=== PATIENT | female | born 2000 | race Caucasian/White ===

== ENCOUNTER 2022-10-08 12:29 | Outpatient (REF) | payer OTHER, SELFPAY ==
[2022-10-08 14:03] LABS: MANUAL DIFF FLAG NO
[2022-10-08 14:18] LABS: Appearance Urine Cloudy; Color Urine Yellow; Glucose Urine UA Negative (Negative); Leukocyte Esterase Urine Moderate (2+) (Negative); Nitrite Urine Negative (Negative); PH 6.5 (5.0-9.0); UMIC TRIGGER UA YES; Urine Blood Negative (Negative); Urine Ketones Negative (Negative); Urine Protein Negative (Neg-Trace)
[2022-10-08 14:19] LABS: Basophils Percent Auto 0.4 % (0-2); Eosinophils Absolute Auto 0.1 X10*3/uL (0.0-0.4); Eosinophils Percent Auto 1.2 % (0-4); Hematocrit 41.5 % (37.0-47.0); Hemoglobin 13.7 g/dl (12.0-16.0); Imm Gran Abs Auto 0.03 X10*3/uL (0.00-0.03); Imm Gran Pct Auto 0.4 % (0.0-0.4); Lymphocytes Absolute Auto 1.8 X10*3/uL (1.2-4.9); Lymphocytes Percent Auto 22.5 % (20-40); Mean Corpuscular Hemoglobin 31.6 pg (27.0-33.0); Mean Corpuscular Volume 95.8 fL (80.0-98.0); Mean Platelet Volume 9.8 fL (9.4-12.3); Monocytes Absolute Auto 0.6 X10*3/uL (0.1-1.2); Monocytes Percent Auto 7.2 % (2-11); Neutrophils Absolute Auto 5.3 x10*3/uL (2.0-8.3); Neutrophils Percent Auto 68.3 % (45-73); Platelet Count 298 X10*3/uL (160-400); Red Blood Count 4.33 X10*6/uL (4.20-5.50); Red Cell Distribution Width 13.5 % (11.0-16.0); White Blood Count 7.8 X10*3/uL (4.8-10.8)
[2022-10-08 14:28] LABS: Bacteria Urine 1+ (None Seen); Hyaline Casts Urine 0-2 /LPF (0-2); RBC Urine 0-2 /HPF (0-2); Squamous Epithelial Cell Urine >20 /HPF (0-2); WBC Urine 0-5 /HPF (0-5)
[2022-10-08 15:11] LABS: Alanine Aminotransferase 29 U/L (0-31); Albumin Level 4.2 g/dL (3.5-5.0); Alkaline Phosphatase 75 U/L (39-117); Anion Gap 11 (12-20); Aspartate Amino Transferase 20 U/L (5-31); Bilirubin Total 0.6 mg/dL (0.0-1.0); Blood Urea Nitrogen 13 mg/dL (9-16); Calcium 9.1 mg/dL (8.4-10.2); Carbon Dioxide 23 mmol/L (22-29); Chloride 109 mmol/L (96-108); Cholesterol 263 mg/dL; Estimated Glomerular Filt Rate > 60; Glucose Fasting 88 mg/dL (60-99); HDL Cholesterol 51 mg/dL; LDL Cholesterol Calculated 198 mg/dl; Potassium 4.3 mmol/L (3.3-5.1); Sodium 139 mmol/L (135-145); TSH reflex Free T4 1.08 uIU/mL (0.32-4.0); Total Protein 7.1 g/dL (6.5-8.0); Triglycerides 71 mg/dL
[2022-10-09 04:41] LABS: HBS Num1 2.96 mIU/mL (0-7.99); HBsAGNum1 0.25 S/CO (0.00-0.99); HIV AB/AG Nonreactive (Nonreactive); HIV Num 1 0.07 S/CO (0.00-0.99); Hepatitis B Core Antibody Nonreactive (Nonreactive); Hepatitis B Surface Antigen Negative (Negative); ~HepC Num1 0.11 S/CO (0.00-0.79); ~Hepatitis B Surface Antibody NONREACTIVE (Nonreactive); ~Hepatitis C Antibody Nonreactive (Nonreactive)
[2022-10-09 05:49] LABS: Syphilis Screen Nonreactive (Nonreactive)
== END 2022-10-08 12:30 | disposition home or self-care (01) ==
LOC: HO.WFDLDS 12:29
PROVIDERS: Visit Provider Family Medicine
DX: Z00.00 Encounter for general adult medical examination without abnormal findings (principal); Z11.3 Encounter for screening for infections with a predominantly sexual mode of transmission; Z11.4 Encounter for screening for human immunodeficiency virus [HIV]
CPT/HCPCS: 36415; 80053; 80061; 81001; 84443; 85025; 86704; 86706; 86780; 86803; 87340; 87389

== ENCOUNTER 2023-01-02 09:34 | Outpatient (REF) | payer OTHER, SELFPAY ==
[2023-01-02 13:52] LABS: CT PCR NOT DETECTED (Not Detect.); NG PCR NOT DETECTED (Not Detect.)
[2023-01-03 10:02] LABS: BV Int Neg Control Negative (Negative); BV Int Pos Control Positive (Positive)
== END 2023-01-02 09:35 | disposition home or self-care (01) ==
LOC: HO.LNP 09:34
PROVIDERS: PCP Family Medicine; Visit Provider Advanced Practice Midwife
DX: Z01.419 Encounter for gynecological examination (general) (routine) without abnormal findings (principal)
CPT/HCPCS: 0353U; 87480; 87510; 87660; 88142

== ENCOUNTER 2023-01-10 13:58 | Outpatient (REF) | payer OTHER, SELFPAY ==
--- NOTE | ~2023-01-10 | US_ITS ---
EXAMINATION: US DIAGNOSTIC ULTRASOUND BREAST, BILATERAL CLINICAL INFORMATION: Right breast mass 11 o'clock and left breast mass 1 o'clock. COMPARISON: None. TECHNIQUE: Ultrasound of the bilateral breasts performed with real-time hernandez scale imaging and color Doppler. FINDINGS: RIGHT BREAST: Targeted ultrasound evaluation demonstrated 2 hypoechoic lesions. At the 9 o'clock position there is a 1.2 x 0.9 x 2.0 cm smoothly circumscribed heterogeneous and hypoechoic mass approximately 5 cm from the nipple. No significant distal sound shadowing or enhancement is appreciated. No internal vascularity is identified. At the 11 o'clock position, approximately 10 cm from the nipple, there is a slightly lobulated heterogeneous and hypoechoic mass without significant distal sound shadowing or enhancement. This measures approximately 4.0 x 2.2 x 3.0 cm in size. There is some internal vascularity present. Lesion is wider than it is tall. LEFT BREAST: At the 3 o'clock position, approximately 8 cm from the nipple, there is a circumscribed hypoechoic mass with some internal vascularity measuring approximately 4.0 x 2.4 x 4.0 cm in size. Lesion is wider than it is tall. No significant distal sound shadowing or enhancement is appreciated. Results are discussed with the patient at time of visit. Breast center patient navigator called the above report to referring provider's office (Shaylee). US/US breast LT limited IMPRESSION: Bilateral breast lesions which are solid and probably represent fibroadenomas. Recommend ultrasound-guided core biopsy of the 2 largest lesions, one in the right breast and one in the left breast, with these masses measuring 4 cm in diameter. ASSESSMENT: BI-RADS 4: Suspicious. (subcategory 4A: Low suspicion for malignancy). RECOMMENDATION: Ultrasound guided core biopsy bilateral breasts.
--- NOTE | ~2023-01-10 | US_ITS ---
EXAMINATION: US DIAGNOSTIC ULTRASOUND BREAST, BILATERAL CLINICAL INFORMATION: Right breast mass 11 o'clock and left breast mass 1 o'clock. COMPARISON: None. TECHNIQUE: Ultrasound of the bilateral breasts performed with real-time hernandez scale imaging and color Doppler. FINDINGS: RIGHT BREAST: Targeted ultrasound evaluation demonstrated 2 hypoechoic lesions. At the 9 o'clock position there is a 1.2 x 0.9 x 2.0 cm smoothly circumscribed heterogeneous and hypoechoic mass approximately 5 cm from the nipple. No significant distal sound shadowing or enhancement is appreciated. No internal vascularity is identified. At the 11 o'clock position, approximately 10 cm from the nipple, there is a slightly lobulated heterogeneous and hypoechoic mass without significant distal sound shadowing or enhancement. This measures approximately 4.0 x 2.2 x 3.0 cm in size. There is some internal vascularity present. Lesion is wider than it is tall. LEFT BREAST: At the 3 o'clock position, approximately 8 cm from the nipple, there is a circumscribed hypoechoic mass with some internal vascularity measuring approximately 4.0 x 2.4 x 4.0 cm in size. Lesion is wider than it is tall. No significant distal sound shadowing or enhancement is appreciated. Results are discussed with the patient at time of visit. Breast center patient navigator called the above report to referring provider's office (Shaylee). US/US breast RT limited IMPRESSION: Bilateral breast lesions which are solid and probably represent fibroadenomas. Recommend ultrasound-guided core biopsy of the 2 largest lesions, one in the right breast and one in the left breast, with these masses measuring 4 cm in diameter. ASSESSMENT: BI-RADS 4: Suspicious. (subcategory 4A: Low suspicion for malignancy). RECOMMENDATION: Ultrasound guided core biopsy bilateral breasts.
== END 2023-01-10 13:59 | disposition home or self-care (01) ==
LOC: HO.MAMMO 13:58
PROVIDERS: PCP Family Medicine; Visit Provider Family Medicine
DX: N63.11 Unspecified lump in the right breast, upper outer quadrant (principal); N63.21 Unspecified lump in the left breast, upper outer quadrant
CPT/HCPCS: 76642

== ENCOUNTER 2023-01-16 08:51 | Outpatient (REF) | payer OTHER, SELFPAY ==
--- NOTE | ~2023-01-16 | US_ITS ---
EXAMINATION: ULTRASOUND GUIDED CORE BIOPSY BREAST, LEFT ULTRASOUND GUIDED CORE BIOPSY BREAST, RIGHT CLINICAL INFORMATION: 22-year-old with bilateral palpable masses, each approximately 4 cm on ultrasound, likely fibroadenoma. COMPARISON: Targeted bilateral breast ultrasound 01/10/2023. FINDINGS: Proper informed consent is obtained from the patient after discussion of the procedure, potential risks and complications, and alternatives. Patient was given an opportunity for questions. The patient appeared to understand. The patient consented to the procedure and signed the consent form. LEFT BREAST: LOCATION: 3:00, 8 cm from nipple. GUIDANCE: Ultrasound-guided; aseptic technique. LESION: Macrolobulated smooth solid mass, 4 cm, likely fibroadenoma. APPROACH: Oblique caudal cranial. ANESTHESIA: 10 mL carbonated 1% lidocaine. DERMATOTOMY: Single skin ivan dermatotomy performed. NEEDLE: 14-gauge Achieve core biopsy device with 13.5-gauge co-axial guide needle. CORES: 5. CLIP: HydroMARK; shape: butterfly. Clip deployment is visualized during real-time ultrasound. RIGHT BREAST: New anesthesia and biopsy supplies are used. LOCATION: 11:00, 10 cm from nipple. GUIDANCE: Ultrasound-guided; aseptic technique. LESION: Macrolobulated solid mass, 4 cm, likely fibroadenoma. APPROACH: Lateral medial. ANESTHESIA: 10 mL carbonated 1% lidocaine. DERMATOTOMY: Single skin ivan dermatotomy performed. NEEDLE: 14-gauge Achieve core biopsy device with 13.5-gauge co-axial guide needle. CORES: 5. CLIP: HydroMARK; shape: open coil. Clip deployment is visualized during real-time ultrasound. The patient tolerated the procedure well. No immediate complications. Home instructions reviewed with the patient. Final pathology results are pending. US/US breast ndl core biopsy LT IMPRESSION: 1. Status post ultrasound-guided core biopsy bilateral breast. 2. Clips placed: Left: HydroMARK; shape: butterfly and right: HydroMARK; shape: open coil. 3. Pathology pending. An addendum report will be issued.
--- NOTE | ~2023-01-16 | US_ITS ---
EXAMINATION: ULTRASOUND GUIDED CORE BIOPSY BREAST, LEFT ULTRASOUND GUIDED CORE BIOPSY BREAST, RIGHT CLINICAL INFORMATION: 22-year-old with bilateral palpable masses, each approximately 4 cm on ultrasound, likely fibroadenoma. COMPARISON: Targeted bilateral breast ultrasound 01/10/2023. FINDINGS: Proper informed consent is obtained from the patient after discussion of the procedure, potential risks and complications, and alternatives. Patient was given an opportunity for questions. The patient appeared to understand. The patient consented to the procedure and signed the consent form. LEFT BREAST: LOCATION: 3:00, 8 cm from nipple. GUIDANCE: Ultrasound-guided; aseptic technique. LESION: Macrolobulated smooth solid mass, 4 cm, likely fibroadenoma. APPROACH: Oblique caudal cranial. ANESTHESIA: 10 mL carbonated 1% lidocaine. DERMATOTOMY: Single skin ivan dermatotomy performed. NEEDLE: 14-gauge Achieve core biopsy device with 13.5-gauge co-axial guide needle. CORES: 5. CLIP: HydroMARK; shape: butterfly. Clip deployment is visualized during real-time ultrasound. RIGHT BREAST: New anesthesia and biopsy supplies are used. LOCATION: 11:00, 10 cm from nipple. GUIDANCE: Ultrasound-guided; aseptic technique. LESION: Macrolobulated solid mass, 4 cm, likely fibroadenoma. APPROACH: Lateral medial. ANESTHESIA: 10 mL carbonated 1% lidocaine. DERMATOTOMY: Single skin ivan dermatotomy performed. NEEDLE: 14-gauge Achieve core biopsy device with 13.5-gauge co-axial guide needle. CORES: 5. CLIP: HydroMARK; shape: open coil. Clip deployment is visualized during real-time ultrasound. The patient tolerated the procedure well. No immediate complications. Home instructions reviewed with the patient. Final pathology results are pending. US/US breast ndl core biopsy RT IMPRESSION: 1. Status post ultrasound-guided core biopsy bilateral breast. 2. Clips placed: Left: HydroMARK; shape: butterfly and right: HydroMARK; shape: open coil. 3. Pathology pending. An addendum report will be issued.
[2023-01-16] MEDS: Lidocaine HCl 1 % 20 ML VIAL 18 ML SUBCUT (10:37)
[2023-01-16] MEDS: Sodium Bicarbonate 8.4% 50 MEQ/50 ML VIAL SUBCUT (10:38)
== END 2023-01-16 08:52 | disposition home or self-care (01) ==
LOC: HO.MAMMO 08:51
PROVIDERS: PCP Family Medicine; Visit Provider Surgery
DX: N63.25 Unspecified lump in the left breast, overlapping quadrants (principal); N63.11 Unspecified lump in the right breast, upper outer quadrant
CPT/HCPCS: 19083; 88305; 99202; A4648

== ENCOUNTER 2023-02-11 15:03 | Outpatient (REF) | payer OTHER, SELFPAY ==
[2023-02-12 12:08] LABS: Appearance Urine Turbid; Color Urine Yellow; Glucose Urine UA Negative (Negative); Leukocyte Esterase Urine Small (1+) (Negative); Nitrite Urine Negative (Negative); PH 5.5 (5.0-9.0); Specific Gravity - Urine 1.025 (1.005-1.025); UMIC TRIGGER UA YES; Urine Blood Negative (Negative); Urine Ketones Negative (Negative); Urine Protein Negative (Neg-Trace)
[2023-02-12 12:27] LABS: RBC Urine 0-2 /HPF (0-2); WBC Urine 0-5 /HPF (0-5)
[2023-02-12 12:28] LABS: Bacteria Urine 1+ (None Seen); Hyaline Casts Urine 0-2 /LPF (0-2)
[2023-02-12 17:58] LABS: CT PCR NOT DETECTED (Not Detect.); NG PCR NOT DETECTED (Not Detect.)
== END 2023-02-11 15:04 | disposition home or self-care (01) ==
LOC: HO.LAB 15:03
PROVIDERS: Visit Provider Family Medicine
DX: Z00.00 Encounter for general adult medical examination without abnormal findings (principal); R35.0 Frequency of micturition; E78.00 Pure hypercholesterolemia, unspecified; Z20.2 Contact with and (suspected) exposure to infections with a predominantly sexual mode of transmission
CPT/HCPCS: 0353U; 81001; 81003; 87086

== ENCOUNTER 2023-05-27 12:05 | Outpatient (REF) | payer OTHER, SELFPAY ==
[2023-05-27 14:48] LABS: Appearance Urine Clear; Color Urine Yellow; Glucose Urine UA Negative (Negative); Leukocyte Esterase Urine Trace (Negative); Nitrite Urine Negative (Negative); PH 5.5 (5.0-9.0); UMIC TRIGGER UA YES; Urine Blood Negative (Negative); Urine Ketones Negative (Negative); Urine Protein Negative (Neg-Trace)
[2023-05-27 14:51] LABS: Bacteria Urine 1+ (None Seen); Hyaline Casts Urine 0-2 /LPF (0-2); RBC Urine 0-2 /HPF (0-2); WBC Urine 0-5 /HPF (0-5)
[2023-05-27 17:42] LABS: Cholesterol 244 mg/dL; HDL Cholesterol 59 mg/dL; LDL Cholesterol Calculated 167 mg/dl; Triglycerides 91 mg/dL
[2023-05-28 11:24] LABS: CT PCR NOT DETECTED (Not Detect.); NG PCR NOT DETECTED (Not Detect.)
== END 2023-05-27 12:06 | disposition home or self-care (01) ==
LOC: HO.WFDLDS 12:05
PROVIDERS: Visit Provider Family Medicine
DX: Z00.00 Encounter for general adult medical examination without abnormal findings (principal); Z11.3 Encounter for screening for infections with a predominantly sexual mode of transmission; E78.00 Pure hypercholesterolemia, unspecified
CPT/HCPCS: 0353U; 36415; 80061; 81001

== ENCOUNTER 2023-05-30 15:59 | Outpatient (AMB) | payer OTHER, SELFPAY ==
--- NOTE | 2023-05-30 15:53 | MHC.PC.OV ---
Intake Visit Reasons: Follow-up elevated cholesterol and urine studies Radiation Protection Technician Required: No Allergies No Known Allergies Allergy (Verified 05/30/23 15:54) Tobacco use date assessed: 05/30/23 Dental Screening Dental Screen Date: 05/30/23 Did you have a dental visit in the last 12 months?: Yes Did you have a dental problem in the last 6 months where you did not have access to dental care?: No Was dental information given to patient?: Patient has dentist HPI Follow-up elevated cholesterol and urine studies HPI Details 22 y/o female presents to f/u elevated cholesterol and urine studies via telemedicine. Lipid panel drawn 05/27/23. Reviewed labs with pt. Triglycerides 91. TC 244. LDL improved from 198 to 167. HDL 59. 1+ urine bacteruia seen. She denies any urinary symptoms. She states she would like to improve her diet further. She does note her weight has been improving. HPI Comments History of Present Illness Details Documentation assistance for Haroldo Chavez MD, was provided by Hudson Roldan,? [employer] on 05/30/2023 4:06 PM EST. I, Dr. Chavez, have read, observed, and verified documentation. 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 Current occupational exposures/hazards: No Cognitive needs: No Hearing needs: No Vision needs: No Female Reproductive History Menstrual Age of Menarche: 10 Review of Systems Const Denies chills, Denies fatigue, Denies fever(s), Denies headache(s) and Denies weakness ENT Denies dizziness and Denies headache(s) Card Denies dyspnea Resp Denies cough, Denies dyspnea, Denies wheezing and Denies other (shortness of breath) Musc Denies numbness and Denies tingling Neuro Denies dizziness, Denies headache(s), Denies numbness, Denies tingling and Denies weakness Psych Denies anxiety and Denies depression Endo Denies fatigue Aller/Immun Denies wheezing Physical exam (Primary Care) Tobacco/Smoking Status: Tobacco use Status Tobacco use date assessed 05/30/23 05/30/23 15:59 Patient Tobacco Use Status Never used Tobacco 05/30/23 15:59 Tobacco use type 02/11/23 15:03 e-Cigarette/Vaping Use Never Used 05/30/23 15:59 Telehealth Telehealth Location of provider rendering services: practice address Location of patient: other Patient Identification confirmed using: Name, : Yes Telehealth method: voice only Patient verbally consented to treatment: Yes Patient verbally consented to billing insurance company: Yes Patient informed of any privacy concerns related to visit: Yes Minutes spent on Phone/Video with Pt.: 7 Assessment and Plan Assessment & Plan (1) Elevated LDL cholesterol level: Code(s): E78.00 - Pure hypercholesterolemia, unspecified Plan: Patient brought her LDL cholesterol down from 198 to 167; 31 points. She would like to continue working on lifestyle changes Will follow-up in 3-4 months and she will have her labs drawn prior to that visit (2) Bacteria in urine: Code(s): R82.71 - Bacteriuria Plan: No significant symptoms Likely mild bacteriuria Hydrate well (3) Screening for STD (sexually transmitted disease): Code(s): Z11.3 - Encounter for screening for infections with a predominantly sexual mode of transmission Plan: STD screening negative now Orders: Orders Basic Metabolic Panel Fasting Today E78.00 - Pure hypercholesterolemia, unspecified Lipid Panel Today E78.00 - Pure hypercholesterolemia, unspecified, Z00.00 - Encounter for general adult medical examination without abnormal findings Coding Level of Care Code Tele Est Pt Level 2 (22426) Diagnoses Elevated LDL cholesterol level E78.00 Bacteria in urine R82.71 Screening for STD (sexually transmitted disease) Z11.3
== END 2023-05-30 16:10 ==
LOC: HO.HMGFM 16:00
PROVIDERS: PCP Family Medicine; Visit Provider Family Medicine
DX: E78.00 Pure hypercholesterolemia, unspecified (principal); R82.71 Bacteriuria; Z11.3 Encounter for screening for infections with a predominantly sexual mode of transmission
CPT/HCPCS: 99212

== ENCOUNTER 2023-10-20 12:28 | Outpatient (REF) | payer OTHER, SELFPAY ==
[2023-10-20 14:04] LABS: Anion Gap 11 (12-20); Blood Urea Nitrogen 13 mg/dL (9-16); Calcium 9.3 mg/dL (8.4-10.2); Carbon Dioxide 22 mmol/L (22-29); Chloride 110 mmol/L (96-108); Cholesterol 238 mg/dL (<200); Estimated Glomerular Filt Rate > 60; Glucose Fasting 93 mg/dL (60-99); HDL Cholesterol 48 mg/dL (>40); LDL Cholesterol Calculated 172 mg/dL (<100); Potassium 4.1 mmol/L (3.3-5.1); Sodium 139 mmol/L (135-145); Triglycerides 91 mg/dL (<150)
[2023-10-20 14:28] LABS: Appearance Urine Clear; Color Urine Yellow; Glucose Urine UA Negative (Negative); Leukocyte Esterase Urine Negative (Negative); Nitrite Urine Negative (Negative); PH 5.5 (5.0-9.0); Specific Gravity - Urine 1.025 (1.005-1.025); Urine Blood Negative (Negative); Urine Ketones Negative (Negative); Urine Protein Negative (Neg-Trace)
== END 2023-10-20 12:29 | disposition home or self-care (01) ==
LOC: HO.LAB 12:28
PROVIDERS: PCP Family Medicine; Visit Provider Family Medicine
DX: Z00.00 Encounter for general adult medical examination without abnormal findings (principal); R35.0 Frequency of micturition; E78.00 Pure hypercholesterolemia, unspecified
CPT/HCPCS: 36415; 80048; 80061; 81003

== ENCOUNTER 2023-11-11 12:13 | Outpatient (REF) | payer OTHER, SELFPAY ==
[2023-11-11 16:35] LABS: CT PCR NOT DETECTED (Not Detect.); NG PCR DETECTED (Not Detect.)
[2023-11-12 03:46] LABS: Syphilis Screen Nonreactive (Nonreactive)
[2023-11-12 04:14] LABS: HBS Num1 0.67 mIU/mL (0-7.99); HBc Num1 0.11 S/CO (0.00-0.79); HBsAGNum1 0.42 S/CO (0.00-0.99); HIV AB/AG Nonreactive (Nonreactive); HIV Num 1 0.06 S/CO (0.00-0.99); Hepatitis B Core Antibody Nonreactive (Nonreactive); Hepatitis B Surface Antigen Negative (Negative); ~HepC Num1 0.11 S/CO (0.00-0.79); ~Hepatitis B Surface Antibody NONREACTIVE (Nonreactive); ~Hepatitis C Antibody Nonreactive (Nonreactive)
[2023-11-13 05:09] LABS: Herpes Simplex Type 2 IgG <0.90 index
== END 2023-11-11 12:14 | disposition home or self-care (01) ==
LOC: HO.WFDLDS 12:13
PROVIDERS: Visit Provider Family Medicine
DX: Z11.3 Encounter for screening for infections with a predominantly sexual mode of transmission (principal); Z11.4 Encounter for screening for human immunodeficiency virus [HIV]
CPT/HCPCS: 0353U; 36415; 86695; 86696; 86704; 86706; 86780; 86803; 87340; 87389

== ENCOUNTER 2023-11-20 11:16 | Outpatient (AMB) | payer OTHER, SELFPAY ==
--- NOTE | 2023-11-20 11:29 | MHC.PC.OV ---
Vital Signs 11/20/23 11:30 Height 5 ft 9.5 in Weight 209 lb BMI 30.4 BP 126/70 Blood Pressure Location Lt brachial Position Sitting Pulse 89 Pulse Source Pulse Oximeter Pulse Oximetry (%) 100 Oxygen Delivery Method Room Air Intake Visit Reasons: Discuss results Intake Note: Patient is here to discuss her test results, already got her rocephin shot at an urgent. Allergies No Known Allergies Allergy (Verified 11/20/23 11:33) Tobacco use date assessed: 11/20/23 HPI Discuss results HPI Details 23 y/o female presents to discuss test results. 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 Current occupational exposures/hazards: No Cognitive needs: No Hearing needs: No Vision needs: No Female Reproductive History Menstrual Age of Menarche: 10 Review of Systems Const Denies chills, Denies fatigue, Denies fever(s), Denies headache(s) and Denies weakness ENT Denies dizziness and Denies headache(s) Card Denies dyspnea Resp Denies cough, Denies dyspnea, Denies wheezing and Denies other (shortness of breath) Musc Denies numbness and Denies tingling Neuro Denies dizziness, Denies headache(s), Denies numbness, Denies tingling and Denies weakness Psych Denies anxiety and Denies depression Endo Denies fatigue Aller/Immun Denies wheezing Physical exam (Primary Care) Vital Signs: Last Vital Signs Pulse 89 11/20/23 11:30 BP 126/70 11/20/23 11:30 Pulse Ox 100 11/20/23 11:30 Oxygen Delivery Method Room Air 11/20/23 11:30 BMI result Body Mass Index 30.4 Tobacco/Smoking Status: Tobacco use Status Tobacco use date assessed 11/20/23 11/20/23 11:35 Patient Tobacco Use Status Never used Tobacco 11/20/23 11:35 Tobacco use type 04/11/23 15:03 e-Cigarette/Vaping Use Never Used 11/20/23 11:35 Const General: well developed; No acute distress Nutritional Appearance: well nourished Orientation/consciousness: patient oriented x3 HENMT Head: Yes normocephalic and Yes atraumatic Eyes General: appearance normal, both eyes and all related structures Pupils: Equal, round and reactive pupils present EOM: EOMs intact bilaterally Resp Effort & Inspection: normal respiratory effort Neuro General: patient oriented x3 and gait normal Cranial nerves: Yes Equal, round and reactive pupils present Psych Affect: normal affect Assessment and Plan Assessment & Plan (1) Gonococcal infection: Code(s): A54.9 - Gonococcal infection, unspecified Plan: Patient?already?received?Rocephin?at?an?outside?urgent?care. Discussed that?she?needs?to?make?sure?her?partner?is?treated?as?well Coding Level of Care Code Est Pt Level 3 (71208) Diagnoses Gonococcal infection A54.9
[2023-11-20 11:30] VITALS: BP 126/70; PULSE 89; O2SAT 100; BMI 30.4
== END 2023-11-20 13:02 | disposition home or self-care (01) ==
PROVIDERS: PCP Family Medicine; Visit Provider Family Medicine
DX: A54.9 Gonococcal infection, unspecified (principal)
CPT/HCPCS: 99213

== ENCOUNTER 2024-06-23 09:02 | Outpatient (AMB) | payer OTHER, SELFPAY ==
--- NOTE | 2024-06-23 09:29 | A.OFFVIS_ITS ---
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 Doing well with concerns: Right breast fibroadenoma, prefers to have it removed at this time. Had biopsy previously with Dr. Escudero. She tries to eat healthy and stays active with exercise walks at work. Regular monthly menses. Currently is not sexually active. She denies vaginal itching and irritation. STI screening offered; she accepts. Denies family history of breast, ovarian or colon cancer. Last pap smear 2022, negative. 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 Current occupational exposures/hazards: No Cognitive needs: No Hearing needs: No Vision needs: No Female Reproductive History Menstrual Age of Menarche: 10 Duration of menses: 3-5 days Date of last menstrual period: 06/03/24 control method: none Total pregnancies: 0 Date of last pap smear: 01/02/23 (neg) History of STI: Yes (Trich, gc, hsv) Review of Systems Const All systems reviewed & are unremarkable except as noted in HPI and below Reports as per HPI Eyes Reports no additional complaints ENT Reports no additional complaints Card Reports no additional complaints Resp Reports no additional complaints GI Reports as per HPI and Reports no additional complaints Reports as per HPI Musc Reports no additional complaints Skin/Breast Reports as per HPI Neuro Reports no additional complaints Psych Reports no additional complaints Endo Reports no additional complaints Slava/Lymph Reports no additional complaints Aller/Immun Reports no additional complaints Physical Exam Vital Signs: Last Vital Signs BP 116/80 06/23/24 09:31 BMI result Body Mass Index 29.8 Const General: cooperative, healthy appearing, no acute distress, well developed and alert Orientation/consciousness: patient oriented x3 HEENT Head: Yes normal to inspection Eyes General: appearance normal, both eyes and all related structures Neck Neck: Yes normal visual inspection Thyroid: Thyroid normal Chest Other: Breast lump right breast 10-11 o'clock position, right nipple inversion-not adhered bilaterally affected since development. Chest palpation & inspection: normal inspection of the chest and other (no puckering, dimpling, peau de orange, retraction, discharge, masses) Breast/axilla inspection: normal inspection of the breasts Breast/axilla palpation: normal palpation of the breasts Resp Effort & Inspection: normal respiratory effort GI Inspection: Yes normal to inspection Palpation (GI): Soft to palpation Rectal Exam - Female: deferred General: Yes bladder normal to palpation External Female Exam: normal external appearance and normal appearance of the urethra Speculum Exam - Vagina: normal appearance of the vagina, normal palpation and normal vaginal discharge Speculum Exam - Cervix: normal appearance of the cervix and normal palpation Bimanual exam- vagina & uterus: normal bimanual exam, normal palpation, uterine size normal, bladder normal to palpation, normal palpation and non-tender Bimanual Exam- Adnexa, other: no masses Skin General skin exam: no rashes or lesions noted Rashes: no rashes Neuro General: patient oriented x3 Cognition (Neuro): normal cognition Extrem General: Yes normal to inspection Psych Attitude: cooperative Thought process: Normal thought process present Assessment & Plan Assessment & Plan (1) Well woman exam with routine gynecological exam: Code(s): Z01.419 - Encounter for gynecological examination (general) (routine) without abnormal findings Category: Medical (2) Gonorrhea contact, treated: Code(s): Z20.2 - Contact with and (suspected) exposure to infections with a predominantly sexual mode of transmission (3) Trichomonas contact, treated: Code(s): Z20.2 - Contact with and (suspected) exposure to infections with a predominantly sexual mode of transmission (4) Fibroadenoma of right breast: Code(s): D24.1 - Benign neoplasm of right breast Category: Medical Plan Discussed: Current recommendations for pap smears per ASCCP guidelines. Breast awareness and periodic breast exams. Maintain a healthy lifestyle including a well balanced diet and routine exercise. Use condoms for STI and prevention. Return to the office for control consult when desired. Referral placed to Dr. Escudero for surgical consult due to request for removal of the fibroadenoma. Patient verbalizes understanding and agrees to the plan of care. She was given opportunity to ask questions and all questions were answered to the best of my ability. 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 This note is constructed using voice recognition software. While every effort has been made to ensure accuracy, steam frame operator errors may have been included. Orders: Orders Syphilis Screen Today Z20.2 - Contact with and (suspected) exposure to infections with a predominantly sexual mode of transmission Hepatitis B Core Antibody Today Z20.2 - Contact with and (suspected) exposure to infections with a predominantly sexual mode of transmission Bacterial Vaginosis Panel Today A59.9 - Trichomoniasis, unspecified, Z20.2 - Contact with and (suspected) exposure to infections with a predominantly sexual mode of transmission HIV Ab/Ag Today Z20.2 - Contact with and (suspected) exposure to infections with a predominantly sexual mode of transmission Hepatitis C Antibody Reflex Today Z20.2 - Contact with and (suspected) exposure to infections with a predominantly sexual mode of transmission CT NG by PCR Today Z20.2 - Contact with and (suspected) exposure to infections with a predominantly sexual mode of transmission Referrals Breast Surgery Referral D24.1 - Benign neoplasm of right breast Coding Level of Care Code Est Pt Prev Care 18-39y(56510) Diagnoses Well woman exam with routine gynecological exam Z01.419 Gonorrhea contact, treated Z20.2 Trichomonas contact, treated Z20.2 Fibroadenoma of right breast D24.1
[2024-06-23 09:31] VITALS: BP 116/80; BMI 29.8
== END 2024-06-23 10:06 | disposition home or self-care (01) ==
LOC: HO.HWS 09:02
PROVIDERS: PCP Family Medicine; Visit Provider Advanced Practice Midwife
DX: Z01.419 Encounter for gynecological examination (general) (routine) without abnormal findings (principal); Z20.2 Contact with and (suspected) exposure to infections with a predominantly sexual mode of transmission; D24.1 Benign neoplasm of right breast
CPT/HCPCS: 99395

== ENCOUNTER 2024-06-23 09:02 | Outpatient (REF) | payer OTHER, SELFPAY | END 2024-06-23 09:03 | disposition home or self-care (01) | LOC: HO.LAB 09:02 | PROVIDERS: PCP Family Medicine; Visit Provider Advanced Practice Midwife | DX: Z01.419 Encounter for gynecological examination (general) (routine) without abnormal findings (principal); Z20.2 Contact with and (suspected) exposure to infections with a predominantly sexual mode of transmission; D24.1 Benign neoplasm of right breast | CPT/HCPCS: 99395 ==

== ENCOUNTER 2024-06-23 10:00 | Outpatient (REF) | payer OTHER, SELFPAY | END 2024-06-23 10:01 | disposition home or self-care (01) | LOC: HO.LNP 10:00 | PROVIDERS: Visit Provider Advanced Practice Midwife | DX: Z13.89 Encounter for screening for other disorder (principal) ==

== ENCOUNTER 2024-06-23 10:12 | Outpatient (REF) | payer OTHER, SELFPAY ==
[2024-06-23 17:38] LABS: Bacterial Vaginosis PCR POSITIVE (Negative); Candida Group PCR DETECTED (Not Detect); Candida glab krusei PCR NOT DETECTED (Not Detect); Trichomonas vaginalis PCR NOT DETECTED (Not Detect)
[2024-06-23 18:00] LABS: CT PCR NOT DETECTED (Not Detect.); NG PCR NOT DETECTED (Not Detect.)
== END 2024-06-23 10:13 | disposition home or self-care (01) ==
LOC: HO.LAB 10:12
PROVIDERS: PCP Family Medicine; Visit Provider Advanced Practice Midwife
DX: A59.9 Trichomoniasis, unspecified (principal); Z20.2 Contact with and (suspected) exposure to infections with a predominantly sexual mode of transmission
CPT/HCPCS: 0352U; 87491; 87591

== ENCOUNTER 2024-09-23 14:16 | Outpatient (AMB) | payer OTHER, SELFPAY ==
--- NOTE | 2024-09-23 13:41 | A.OFFVIS_ITS ---
Vital Signs 09/23/24 14:20 Weight 208 lb 2 oz BP 118/60 Blood Pressure Location Rt brachial Position Sitting Intake Visit Reasons: recurrent infection ? Ssis Developer Required: No Surveying Or Spatial Science Technician: Surveying Or Spatial Science Technician Present (Deborah) Allergies No Known Allergies Allergy (Verified 09/23/24 14:23) Medication List - Last Reconciled 09/23/24 by Deborah Funes, DRUG ABUSE RESISTANCE EDUCATION OFFICER Is last menstrual period known: Yes Last menstrual period: 08/30/24 Post menopausal: No Patient : No HPI Comments Details: Patient is here today with concerns that she has bacterial vaginosis again. She admits to having it vaginal odor and slight external irritation. She denied any UTI symptoms or pelvic pain. She consistently uses condoms. She reports regular menses. 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 Current occupational exposures/hazards: No Cognitive needs: No Hearing needs: No Vision needs: No Female Reproductive History Menstrual Age of Menarche: 10 Duration of menses: 3-5 days Date of last menstrual period: 08/30/24 control method: condoms Total pregnancies: 1 Ab induced: 1 Date of last pap smear: 01/02/23 History of abnormal pap smear: No History of STI: Yes History of abnormal mammogram: No Review of Systems Const All systems reviewed & are unremarkable except as noted in HPI and below Physical Exam Vital Signs: Last Vital Signs BP 118/60 09/23/24 14:20 Const General: cooperative, healthy appearing and no acute distress Orientation/consciousness: patient oriented x3 GI Inspection: Yes normal to inspection Palpation (GI): Soft to palpation and Other GI palpation findings present (Nontender) Rectal Exam - Female: visual inspection normal General: Yes bladder normal to palpation External Female Exam: normal appearance of the urethra Speculum Exam - Vagina: normal appearance of the vagina, normal palpation and abnormal vaginal discharge ( clumpy) white Speculum Exam - Cervix: normal appearance of the cervix and normal palpation Bimanual exam- vagina & uterus: normal bimanual exam, normal palpation, uterine size normal, bladder normal to palpation, normal palpation, uterine shape normal and non-tender Bimanual Exam- Adnexa, other: normal adnexae Neuro General: patient oriented x3 Results AMB Test Urine AMB Test Urine Negative Last Edit by Deborah Funes LPN on 09/23/24 13:43 Assessment & Plan Assessment & Plan (1) Vaginal odor: Code(s): N89.8 - Other specified noninflammatory disorders of vagina (2) Vulvar irritation: Code(s): N90.89 - Other specified noninflammatory disorders of vulva and perineum Plan discussed: BV panel and GC chlamydia obtained, await results for plan of care. Continued use of condoms always. Advised to do her labs today. Has a appointment for follow up annual June of 2025. All of her questions and concerns were addressed to the best of my ability and shared decision making. She is agreeable to the plan of care. This note is constructed using voice recognition software. While every effort has been made to ensure accuracy, credit operations specialist errors may have been included. Coding Level of Care Code Est Pt Level 3 (40674) Diagnoses Vaginal odor N89.8 Vulvar irritation N90.89
[2024-09-23 14:20] VITALS: BP 118/60
--- OUTSIDE RECORDS SUMMARY | 2024-09-24 14:45 | XMS_ITS | Continuity of Care Document ---
Author Organization [facility] Address [address] [place] [address] Phone Care Team Providers Care Scrap Stripper Hand Name Role Phone RUBEN NEVES Family Provider Unavailable PCP, UNKNOWN Primary Care Provider DO Raul Bautista Emergency Provider Allergies, Adverse Reactions, Alerts No known allergies Social History Smoking Status Status Start Date End Date Date of Observa tion Never smoked tobacco (finding) May 17, 2022 10:26am Observation Status Observation Response Date of Response Lives With Alone May 17, 2022 9:44am Living Situation Apartment May 17, 2022 10:26am Additional Data Assigned Sex Female Problems Active Problems Medical Problem Onset Date Status Chemical conjunctivitis of both eyes Active Corneal abrasion of both eyes Ac tive Vital Signs Vital Reading Result Reference Range Collection Date/Time Height 175.26 cm May 17, 2022 9:44am Weight 77.11 kg May 17, 2022 9:44am Heart Rate 77 /min 60-90 May 17, 2022 9:44am Respiratory rate 20 /min 12-24 May 17, 2022 9:44am Oxygen saturation by Pulse oximetry 98 % 95-10 0 May 17, 2022 9:44am BP Systolic 130 mm[Hg] 90-140 May 17, 2022 9:44am BP Diastolic 111 mm[Hg] 60-90 May 17, 2022 9:44am BMI (Body Mass Index) 25.1 kg/m2 May 032021 9:44am Advance Directives Advance Directive Response Recorded Date/ Time Advance Directives No May 17 9:33am Health Care Proxy No May 17 9:33am Insurance Providers Guarantor Renetta Chris Address [address] [facility] [address] Contact Info. Home Phone: Payer Policy Id Coverage Id Subscriber's Name Subscriber Id Effective Date Expiration Date [facility] [employer] (Medicaid) [id number] Renetta Joness [id number] [facility] Required Encounters Encounter Location(s) Arrival/Admit Date Discharge/Depart Date Provider(s) Departed Emergency [facility] May 17, 2022 9:32am May 17, 2022 11:30am null Plan of Treatment Future Tests Future scheduled test information is unavailable Pending Tests Pending diagnostic test information is unavailable Future Visits Future appointment information is unavailable Referrals to Other Providers Reason for Referral Referral Start Date Provider Provider Contact Information Provider Address UNKNOWN PCP please go immediatly to this office upon discharge Pallavi Franks MD Work Phone: [place] for [address], [address] [facility] [address] Future Procedures Future procedure information is unavailable Future Medications Future medication information is unavailable Patient Instructions Corneal Injury Goals Acute Goals Your found to have corneal i njury to bilateral eyes and you need urgent follow- up with ophthalmology today and I have discussed this case with Dr. Franks at [facility] at [address] [place] [address] here in [place] and she is expecting you to come to their office upon discharge. Please come back if there is problems with follow-up. Please come back if you worsen in any way.
== END 2024-09-23 14:47 | disposition home or self-care (01) ==
LOC: HO.HWS 14:16
PROVIDERS: PCP Family Medicine; Visit Provider Advanced Practice Midwife
DX: N89.8 Other specified noninflammatory disorders of vagina (principal); N90.89 Other specified noninflammatory disorders of vulva and perineum
CPT/HCPCS: 99213

== ENCOUNTER 2024-09-23 14:16 | Outpatient (REF) | payer OTHER, SELFPAY ==
[2024-09-24 07:50] LABS: Syphilis Screen Nonreactive (Nonreactive)
[2024-09-24 08:17] LABS: HBc Num1 0.13 S/CO (0.00-0.79); HIV AB/AG Nonreactive (Nonreactive); HIV Num 1 0.05 S/CO (0.00-0.99); Hepatitis B Core Antibody Nonreactive (Nonreactive); ~HepC Num1 0.15 S/CO (0.00-0.79); ~Hepatitis C Antibody Nonreactive (Nonreactive)
== END 2024-09-23 14:17 | disposition home or self-care (01) ==
LOC: HO.LAB 14:16
PROVIDERS: PCP Family Medicine; Visit Provider Advanced Practice Midwife
DX: Z20.2 Contact with and (suspected) exposure to infections with a predominantly sexual mode of transmission (principal); N89.8 Other specified noninflammatory disorders of vagina; N90.89 Other specified noninflammatory disorders of vulva and perineum
CPT/HCPCS: 36415; 86704; 86780; 86803; 87389; 99212

== ENCOUNTER 2024-09-23 14:55 | Outpatient (REF) | payer MEDICAID, SELFPAY ==
[2024-09-24 11:56] LABS: Bacterial Vaginosis PCR POSITIVE (Negative); Candida Group PCR NOT DETECTED (Not Detect); Candida glab krusei PCR NOT DETECTED (Not Detect); Trichomonas vaginalis PCR NOT DETECTED (Not Detect)
[2024-09-24 17:37] LABS: CT PCR NOT DETECTED (Not Detect.); NG PCR NOT DETECTED (Not Detect.)
== END 2024-09-23 14:56 | disposition home or self-care (01) ==
LOC: HO.LNP 14:55
PROVIDERS: Visit Provider Advanced Practice Midwife
DX: Z20.2 Contact with and (suspected) exposure to infections with a predominantly sexual mode of transmission (principal)
CPT/HCPCS: 0352U; 87491; 87591

== ENCOUNTER 2024-10-14 14:03 | Outpatient (AMB) | payer OTHER, SELFPAY ==
--- NOTE | 2024-10-14 14:05 | MHC.OFFVIS ---
Vital Signs 10/14/24 14:15 BP 128/80 Intake Visit Reasons: consult per sophie Intake Note: LMP 08/04/24 EDC 05/11/25 10w 1d unsure if this is exact date Library Sales Consultant: Library Sales Consultant Present Allergies No Known Allergies Allergy (Verified 10/14/24 14:11) Is last menstrual period known: Yes Last menstrual period: 08/04/24 HPI Comments Details: Patient is here today with positive test at home test. She reports her LMP was sometime early August, she denies any bleeding or pelvic pain. She admits to taking vitamins. This is her 1st . 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 Current occupational exposures/hazards: No Cognitive needs: No Hearing needs: No Vision needs: No Female Reproductive History Menstrual Age of Menarche: 10 Date of last menstrual period: 08/04/24 control method: none Total pregnancies: 1 Ab induced: 1 History of STI: Yes (01/23 +trich, 11/26 +gc, hx HSV 1) Review of Systems Const All systems reviewed & are unremarkable except as noted in HPI and below Endo Reports no additional complaints Physical Exam Vital Signs: Last Vital Signs BP 128/80 10/14/24 14:15 Const General: cooperative, healthy appearing and no acute distress Psych Appearance: well kempt Attitude: cooperative Thought process: Normal thought process present Results AMB Test Urine AMB Test Urine Positive Last Edit by ANGEL Aguilar on 10/14/24 14:17 Results Reviewed Results Reviewed: Laboratory Last Values [facility] Positive 10/14/24 14:17 Assessment & Plan Assessment & Plan (1) Unsure of LMP (last menstrual period) as reason for ultrasound scan: Code(s): Z36.87 - Encounter for screening for uncertain dates Category: Medical Plan Plan ultrasound for dating, and follow up pending results. Information on practice, delivery, options for care within the community. She is interested in seeing the midwives at [facility] the phone number was provided today. Encouraged to healthy diet with adequate water and regular exercise. Advised to call if there is any bleeding or pelvic pain. The patient expressed understanding and agreement with the plan of care. All of her questions and concerns were addressed to the best of my ability. This note is constructed using voice recognition software. While every effort has been made to ensure accuracy, financial associate errors may have been included. Orders: Orders AMB HCG Urine Test Today Z32.01 - Encounter for test, result positive US OB limited Today Z36.87 - Encounter for screening for uncertain dates Coding Level of Care Code Est Pt Level 3 (90094) Diagnoses Unsure of LMP (last menstrual period) as reason for ultrasound scan Z36.87
--- OUTSIDE RECORDS SUMMARY | 2024-10-14 14:10 | XMS_ITS ---
Author Organization [facility] Address [address] [place] [address] Care Team Providers Care Cooker Soda Name Role Phone Lynn Prince [facility] [phone] ALLERGIES, ADVERSE REACTIONS, ALERTS None MEDICATIONS Medication Code Code System Start Date Stop Date Route Dosage Directions Fill Instructions metronidazole 211934 RxNorm 3 vaginal 1 PROBLEMS Problem Name Code Code System Start Date End Date Stat Other specified inflammation of vagina and vulva 08201632 SnomedCt 07/14/2023 Active Acute vaginitis 435027744 Snomed[facility] 07/16/2023 Acti ve ENCOUNTERS Encounter Diagnosis Code Code System Date Stat us Other specified inflammation of vagina and vulva 55802540 SnomedCt 07/14/2023 Active IMMUNIZATIONS * None VITAL SIGNS Code Code System Vitals Name Date Value and Un its 8462-4 Loinc Blood Pressure-Diastolic 07/14/2023 86 mmHg 8480-6 [facility] Blood Pressure-Systolic 07/14/2023 1 28 mmHg 8867-4 [facility] Heart Rate 07/14/2023 88 /min 9279-1 Loinc Respiratory Rate 07/14/2023 16 /min 8310-5 Loinc Body Temperature 07/14/2023 98.7 F 05274-4 Loinc Oxygen Saturation 07/14/2023 97 % SOCIAL HISTORY * None PROCEDURES * None RESULTS Test Code Code System Description Result Value Date Ref erence Range Loinc Glucose Negative 07/14/2023 Loinc Bilirubin Negative 07/14/2023 Loinc Ketone Negative 07/14/2023 Loinc Specific [place] >=1.030 07/14/2023 Loinc Blood Negative 07/14/2023 Loinc pH 6.26843 07/14/2023 Loinc Protein Negative 07/14/2023 Loinc Urobilinogen 0.32414 E.U./dL 07/14/2023 Loinc Nitrite Negative 07/14/2023 Loinc Leukocytes Negative 07/14/2023 Loinc Color Dark yellow 07/14/2023 Loinc Clarity Clear 07/14/2023 Loinc hCG Negative 07/14/2023 83317-5 Loinc RPR (DX) W/REFL TITER AND CONFIRMATORY TESTING NON-REACTIVE 07/14/2023 NON-REACTIVE 58634-7 Loinc SURESWAB(R) ADV BACTERIAL VAGINOSIS (BV), TMA POSITIVE 07/14/2023 NEGATIVE 96506-8 Lo[facility] EMILY SPECIES NOT DETECTED 07/14/2023 N OT DETECTED 55096-9 Loinc EMILY GLABRATA NOT DETECTED 07/14/2023 NOT DETECTED 05036-7 Loinc TRICHOMONAS VAGI NALIS (TV), TMA NOT DETECTED 07/14/2023 NOT DETECTED 50143-4 Loinc CHLAMYDIA TRACHO MATIS RNA, TMA, UROGENITAL NOT DETECTED 07/14/2023 NOT DETECTED 19921-2 Loinc NEISSERIA GONORR HOEAE RNA, TMA, UROGENITAL NOT DETECTED 07/14/2023 NOT DETECTED MEDICAL EQUIPMENT * Patient has no history of implantable devices ASSESSMENT * None TREATMENT PLAN Type Description Date APPOINTMENT If not feeling lloyd r in 3 day(s), please see your primary care physician. If you do not have a primary care physician, please return to this clinic. 07/14/2023 Labs Tests Test Name Code Code System Date Urinalysis, automated, witho ut microscopy 71833 CPT 07/14/2023 hCG Chemistry Test , Qualitative 68213 CPT 07/14/2023 RPR (DX) W/REFL TITER AND CONFIRMATORY TESTING 93682 CPT 07/14/2023 SURESWAB(R) ADVANCED VAGINIT IS PLUS, TMA 38611;35899;81886;10678;8766 1 CPT 07/14/2023 GOALS * None HEALTH CONCERNS * No Health Concerns FUNCTIONAL AND COGNITIVE STATUS * None CONSULTATION NOTES * None DISCHARGE SUMMARY NOTES * None HISTORY AND PHYSICAL NOTES * None IMAGING NOTES * None LABORATORY REPORT NARRATIVE NOTES * None PATHOLOGY REPORT NARRATIVE NOTES * None PROGRESS NOTES * None
[2024-10-14 14:15] VITALS: BP 128/80
== END 2024-10-14 14:35 | disposition home or self-care (01) ==
LOC: HO.HWS 14:03
PROVIDERS: PCP Family Medicine; Visit Provider Advanced Practice Midwife
DX: Z36.87 Encounter for antenatal screening for uncertain dates (principal); Z32.01 Encounter for pregnancy test, result positive
CPT/HCPCS: 99213

== ENCOUNTER → 2024-10-14 14:03 | Outpatient (BNVA) | payer OTHER, SELFPAY | PROVIDERS: PCP Family Medicine; Visit Provider Advanced Practice Midwife | DX: Z36.87 Encounter for antenatal screening for uncertain dates (principal) | CPT/HCPCS: 81025; 99212 ==

== ENCOUNTER 2024-10-15 13:59 | Outpatient (REF) | payer OTHER, SELFPAY ==
--- NOTE | ~2024-10-15 | US_ITS ---
EXAMINATION: US TRANSVAGINAL US TRANSABDOMINAL INDICATION: Z36.87 - Encounter for screening for uncertain dates. COMPARISON: None. TECHNIQUE: Transabdominal and transvaginal pelvic ultrasound was performed. Color and spectral Doppler evaluation of the vasculature. FINDINGS: Single intrauterine is visualized. There is an oval anechoic structure eccentrically positioned within the uterine fundus, indicative of an early gestational sac. A yolk sac and pole are identified. The crown rump length measures approximately 0.32 cm, corresponding to a gestational age of 6 weeks and 0 days. A heart rate of 162 beats per minute is identified. Both ovaries appear unremarkable. No adnexal masses are identified. The right ovary measures 3 x 1.8 x 1.8 cm. The left ovary measures 3.5 x 2.4 x 2.6 cm. Left ovarian corpus luteal cyst is noted measuring 2.2 x 2 x 1.8 cm. Arterial and venous waveforms are identified in both ovaries on spectral Doppler assessment. There is no significant free pelvic fluid. US/US OB pelvic and transvaginal IMPRESSION: Single living intrauterine with a sonographic estimated gestational age of 6 weeks and 0 days, corresponding with an Estimated Due Date of 06/10/2025. Electronically signed by: Dina Schneider DO 10/15/2024 05:09 PM LO
--- OUTSIDE RECORDS SUMMARY | 2024-10-15 14:01 | XMS_ITS ---
Author Organization [facility] Address [address] [place] [address] Care Team Providers Care Programmable Logic Controller Assembler Name Role Phone Lynn Prince [facility] [phone] ALLERGIES, ADVERSE REACTIONS, ALERTS None MEDICATIONS Medication Code Code System Start Date Stop Date Route Dosage Directions Fill Instructions metronidazole 126168 RxNorm 3 vaginal 1 PROBLEMS Problem Name Code Code System Start Date End Date Stat Other specified inflammation of vagina and vulva 19634300 SnomedCt 07/14/2023 Active Acute vaginitis 596560780 SnomedCt 07/16/2023 Acti ve ENCOUNTERS Encounter Diagnosis Code Code System Date Stat us Other specified inflammation of vagina and vulva 40210936 SnomedCt 07/14/2023 Active IMMUNIZATIONS * None VITAL SIGNS Code Code System Vitals Name Date Value and Un its 8462-4 Loinc Blood Pressure-Diastolic 07/14/2023 86 mmHg 8480-6 Loinc Blood Pressure-Systolic 07/14/2023 1 28 mmHg 8867-4 Loinc Heart Rate 07/14/2023 88 /min 9279-1 Loinc Respiratory Rate 07/14/2023 16 /min 8310-5 Loinc Body Temperature 07/14/2023 98.7 F 12948-3 Loinc Oxygen Saturation 07/14/2023 97 % SOCIAL HISTORY * None PROCEDURES * None RESULTS Test Code Code System Description Result Value Date Ref erence Range Loinc Glucose Negative 07/14/2023 Loinc Bilirubin Negative 07/14/2023 Loinc Ketone Negative 07/14/2023 Loinc Specific [place] >=1.030 07/14/2023 Loinc Blood Negative 07/14/2023 Loinc pH 6.61691 07/14/2023 Loinc Protein Negative 07/14/2023 Loinc Urobilinogen 0.92133 E.U./dL 07/14/2023 Loinc Nitrite Negative 07/14/2023 Loinc Leukocytes Negative 07/14/2023 Loinc Color Dark yellow 07/14/2023 Loinc Clarity Clear 07/14/2023 Loinc hCG Negative 07/14/2023 24069-3 Loinc RPR (DX) W/REFL TITER AND CONFIRMATORY TESTING NON-REACTIVE 07/14/2023 NON-REACTIVE 17058-0 Loinc SURESWAB(R) ADV BACTERIAL VAGINOSIS (BV), TMA POSITIVE 07/14/2023 NEGATIVE 15588-1 Loinc EMILY SPECIES NOT DETECTED 07/14/2023 N OT DETECTED 14691-6 Loinc EMILY GLABRATA NOT DETECTED 07/14/2023 NOT DETECTED 33697-1 Loinc TRICHOMONAS VAGI NALIS (TV), TMA NOT DETECTED 07/14/2023 NOT DETECTED 88318-4 Loinc CHLAMYDIA TRACHO MATIS RNA, TMA, UROGENITAL NOT DETECTED 07/14/2023 NOT DETECTED 30225-8 Loinc NEISSERIA GONORR HOEAE RNA, TMA, UROGENITAL [...] System Date Urinalysis, automated, witho ut microscopy 55686 CPT 07/14/2023 hCG Chemistry Test , Qualitative 88427 CPT 07/14/2023 RPR (DX) W/REFL TITER AND CONFIRMATORY TESTING 39942 CPT 07/14/2023 SURESWAB(R) ADVANCED VAGINIT IS PLUS, TMA 88856;81868;12436;98185;8766 1 CPT 07/14/2023 GOALS * None HEALTH CONCERNS * No Health Concerns FUNCTIONAL AND COGNITIVE STATUS * None CONSULTATION NOTES * None DISCHARGE SUMMARY NOTES * None HISTORY AND PHYSICAL NOTES * None IMAGING NOTES * None LABORATORY REPORT NARRATIVE NOTES * None PATHOLOGY REPORT NARRATIVE NOTES * None PROGRESS NOTES * None
--- OUTSIDE RECORDS SUMMARY | 2024-10-15 14:01 | XMS_ITS ---
Author Organization [facility] Address [address] [place] [address] Care Team Providers Care Bag Filler Name Role Phone Lynn Prince [facility] [phone] ALLERGIES, ADVERSE REACTIONS, ALERTS None MEDICATIONS Medication Code Code System Start Date Stop Date Route Dosage Directions Fill Instructions metronidazole 529791 RxNorm 3 vaginal 1 PROBLEMS Problem Name Code Code System Start Date End Date Stat Other specified inflammation of vagina and vulva 83013299 SnomedCt 07/14/2023 Active Acute vaginitis 766268728 SnomedCt 07/16/2023 Acti ve ENCOUNTERS Encounter Diagnosis Code Code System Date Stat us Other specified inflammation of vagina and vulva 76916539 SnomedCt 07/14/2023 Active IMMUNIZATIONS * None VITAL SIGNS Code Code System Vitals Name Date Value and Un its 8462-4 Loinc Blood Pressure-Diastolic 07/14/2023 86 mmHg 8480-6 Loinc Blood Pressure-Systolic 07/14/2023 1 28 mmHg 8867-4 Loinc Heart Rate 07/14/2023 88 /min 9279-1 Loinc Respiratory Rate 07/14/2023 16 /min 8310-5 Loinc Body Temperature 07/14/2023 98.7 F 77189-8 Loinc Oxygen Saturation 07/14/2023 97 % SOCIAL HISTORY * None PROCEDURES * None RESULTS Test Code Code System Description Result Value Date Ref erence Range Loinc Glucose Negative 07/14/2023 Loinc Bilirubin Negative 07/14/2023 Loinc Ketone Negative 07/14/2023 Loinc Specific [place] >=1.030 07/14/2023 Loinc Blood Negative 07/14/2023 Loinc pH 6.80719 07/14/2023 Loinc Protein Negative 07/14/2023 Loinc Urobilinogen 0.76918 E.U./dL 07/14/2023 Loinc Nitrite Negative 07/14/2023 Loinc Leukocytes Negative 07/14/2023 Loinc Color Dark yellow 07/14/2023 Loinc Clarity Clear 07/14/2023 Loinc hCG Negative 07/14/2023 01584-2 Loinc RPR (DX) W/REFL TITER AND CONFIRMATORY TESTING NON-REACTIVE 07/14/2023 NON-REACTIVE 15082-7 Loinc SURESWAB(R) ADV BACTERIAL VAGINOSIS (BV), TMA POSITIVE 07/14/2023 NEGATIVE 67043-6 Loinc EMILY SPECIES NOT DETECTED 07/14/2023 N OT DETECTED 91202-7 Loinc EMILY GLABRATA NOT DETECTED 07/14/2023 NOT DETECTED 63796-0 Loinc TRICHOMONAS VAGI NALIS (TV), TMA NOT DETECTED 07/14/2023 NOT DETECTED 17523-9 Loinc CHLAMYDIA TRACHO MATIS RNA, TMA, UROGENITAL NOT DETECTED 07/14/2023 NOT DETECTED 18609-7 Loinc NEISSERIA GONORR HOEAE RNA, TMA, UROGENITAL [...] System Date Urinalysis, automated, witho ut microscopy 18676 CPT 07/14/2023 hCG Chemistry Test , Qualitative 82803 CPT 07/14/2023 RPR (DX) W/REFL TITER AND CONFIRMATORY TESTING 01226 CPT 07/14/2023 SURESWAB(R) ADVANCED VAGINIT IS PLUS, TMA 88995;26240;75176;75554;8766 1 CPT 07/14/2023 GOALS * None HEALTH CONCERNS * No Health Concerns FUNCTIONAL AND COGNITIVE STATUS * None CONSULTATION NOTES * None DISCHARGE SUMMARY NOTES * None HISTORY AND PHYSICAL NOTES * None IMAGING NOTES * None LABORATORY REPORT NARRATIVE NOTES * None PATHOLOGY REPORT NARRATIVE NOTES * None PROGRESS NOTES * None
== END 2024-10-15 14:00 | disposition home or self-care (01) ==
LOC: HO.US 13:59
PROVIDERS: PCP Family Medicine; Visit Provider Advanced Practice Midwife
DX: Z36.87 Encounter for antenatal screening for uncertain dates (principal)
CPT/HCPCS: 76801; 76817

== ENCOUNTER 2024-11-11 13:24 | Outpatient (REF) | payer OTHER, SELFPAY ==
[2024-11-12 02:31] LABS: CT PCR NOT DETECTED (Not Detect.); NG PCR NOT DETECTED (Not Detect.)
[2024-11-12 08:43] LABS: Bacterial Vaginosis PCR POSITIVE (Negative); Candida Group PCR NOT DETECTED (Not Detect); Candida glab krusei PCR NOT DETECTED (Not Detect); Trichomonas vaginalis PCR NOT DETECTED (Not Detect)
== END 2024-11-11 13:25 | disposition home or self-care (01) ==
LOC: HO.LAB 13:24
PROVIDERS: PCP Family Medicine; Visit Provider Advanced Practice Midwife
DX: N89.8 Other specified noninflammatory disorders of vagina (principal); Z20.2 Contact with and (suspected) exposure to infections with a predominantly sexual mode of transmission
CPT/HCPCS: 81515; 87491; 87591; 99212; 99459

== ENCOUNTER 2024-11-11 13:24 | Outpatient (AMB) | payer OTHER, SELFPAY ==
--- NOTE | 2024-11-11 13:31 | A.OFFVIS_ITS ---
Vital Signs 11/11/24 13:32 Height 5 ft 9.5 in Weight 208 lb BMI 30.3 BP 110/70 Intake Visit Reasons: Ultrasound Follow up Intake Note: patient had TAB 10/20/24, wants STD testing Allergies No Known Allergies Allergy (Verified 11/11/24 13:31) HPI Comments Details: Patient is here today for STD screening. She had a previous terminated in October. She reports a odor and vaginal discharge she thinks might be BV. She denies any pelvic pain or urinary symptoms. She had one bleed since her termination. She does not want to start control as there is no need for it at this time. She would like to do blood work additionally today. 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 Current occupational exposures/hazards: No Cognitive needs: No Hearing needs: No Vision needs: No Female Reproductive History Menstrual Age of Menarche: 10 Review of Systems Const All systems reviewed & are unremarkable except as noted in HPI and below Physical Exam Vital Signs: Last Vital Signs BP 110/70 11/11/24 13:32 BMI result Body Mass Index 30.3 Const General: cooperative, healthy appearing and no acute distress Orientation/consciousness: patient oriented x3 GI Inspection: Yes normal to inspection Palpation (GI): Soft to palpation and Other GI palpation findings present (Nontender) Rectal Exam - Female: visual inspection normal General: Yes bladder normal to palpation External Female Exam: normal appearance of the urethra Speculum Exam - Vagina: normal appearance of the vagina, normal palpation and abnormal vaginal discharge (White discharge coating vagina) Speculum Exam - Cervix: normal appearance of the cervix and normal palpation Bimanual exam- vagina & uterus: normal bimanual exam, normal palpation, uterine size normal, bladder normal to palpation, normal palpation, uterine shape normal and non-tender Bimanual Exam- Adnexa, other: normal adnexae Neuro General: patient oriented x3 Assessment & Plan Assessment & Plan (1) Potential exposure to STD: Code(s): Z20.2 - Contact with and (suspected) exposure to infections with a predominantly sexual mode of transmission Category: Medical (2) Vaginal odor: Code(s): N89.8 - Other specified noninflammatory disorders of vagina (3) Vaginal discharge: Code(s): N89.8 - Other specified noninflammatory disorders of vagina Plan Plan blood work today. GC chlamydia and BV panel obtained. Schedule annual exam. Monitor menses. Return to the office for control, use of condoms if needed. The patient expressed understanding and agreement with the plan of care. All of her questions and concerns were addressed to the best of my ability. This note is constructed using voice recognition software. While every effort has been made to ensure accuracy, owner/photographer errors may have been included. Orders: Orders HIV Ab/Ag Today Z20.2 - Contact with and (suspected) exposure to infections with a predominantly sexual mode of transmission Hepatitis C Viral Load Today Z20.2 - Contact with and (suspected) exposure to infections with a predominantly sexual mode of transmission Hepatitis B Surface Antigen Today Z20.2 - Contact with and (suspected) exposure to infections with a predominantly sexual mode of transmission Syphilis Screen Today Z20.2 - Contact with and (suspected) exposure to infections with a predominantly sexual mode of transmission Coding Level of Care Code Est Pt Level 3 (92638) Diagnoses Potential exposure to STD Z20.2 Vaginal odor N89.8 Vaginal discharge N89.8
[2024-11-11 13:32] VITALS: BP 110/70; BMI 30.3
--- OUTSIDE RECORDS SUMMARY | 2024-11-11 14:43 | XMS_ITS ---
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 Phone Lynn Prince [facility] [phone] ALLERGIES, ADVERSE REACTIONS, ALERTS None MEDICATIONS Medication Code Code System Start Date Stop Date Route Dosage Directions Fill Instructions metronidazole 683419 RxNorm 3 vaginal 1 PROBLEMS Problem Name Code Code System Start Date End Date Stat Other specified inflammation of vagina and vulva 73587106 Snomed[facility] 07/14/2023 Active Acute vaginitis 326858206 [facility] 07/16/2023 Acti ve ENCOUNTERS Encounter Diagnosis Code Code System Date Stat us Other specified inflammation of vagina and vulva 07865225 Snomed[facility] 07/14/2023 Active IMMUNIZATIONS * None VITAL SIGNS Code Code System Vitals Name Date Value and Un its 8462-4 [facility] Blood Pressure-Diastolic 07/14/2023 86 mmHg 8480-6 [facility] Blood Pressure-Systolic 07/14/2023 1 28 mmHg 8867-4 [facility] Heart Rate 07/14/2023 88 /min 9279-1 [facility] Respiratory Rate 07/14/2023 16 /min 8310-5 [facility] Body Temperature 07/14/2023 98.7 F 40068-0 [facility] Oxygen Saturation 07/14/2023 97 % SOCIAL HISTORY * None PROCEDURES * None RESULTS Test Code Code System Description Result Value Date Ref erence Range [facility] Glucose Negative 07/14/2023 [facility] Bilirubin Negative 07/14/2023 [facility] Ketone Negative 07/14/2023 Loinc Specific [place] >=1.030 07/14/2023 [facility] Blood Negative 07/14/2023 Lo[facility] pH 6.59802 07/14/2023 [facility] Protein Negative 07/14/2023 [facility] Urobilinogen 0.72310 E.U./dL 07/14/2023 [facility] Nitrite Negative 07/14/2023 [facility] Leukocytes Negative 07/14/2023 [facility] Color Dark yellow 07/14/2023 [facility] Clarity Clear 07/14/2023 [facility] hCG Negative 07/14/2023 57214-0 [facility] RPR (DX) W/REFL TITER AND CONFIRMATORY TESTING NON-REACTIVE 07/14/2023 NON-REACTIVE 33208-3 [facility] SURESWAB(R) ADV BACTERIAL VAGINOSIS (BV), TMA POSITIVE 07/14/2023 NEGATIVE 02365-4 [facility] EMILY SPECIES NOT DETECTED 07/14/2023 N OT DETECTED 16738-2 [facility] EMILY GLABRATA NOT DETECTED 07/14/2023 NOT DETECTED 16515-2 [facility] TRICHOMONAS VAGI NALIS (TV), TMA NOT DETECTED 07/14/2023 NOT DETECTED 90470-0 [facility] CHLAMYDIA TRACHO MATIS RNA, TMA, UROGENITAL NOT DETECTED 07/14/2023 NOT DETECTED 35439-0 [facility] NEISSERIA GONORR HOEAE RNA, TMA, UROGENITAL [...] System Date Urinalysis, automated, witho ut microscopy 64497 CPT 07/14/2023 hCG Chemistry Test , Qualitative 64805 CPT 07/14/2023 RPR (DX) W/REFL TITER AND CONFIRMATORY TESTING 69475 CPT 07/14/2023 SURESWAB(R) ADVANCED VAGINIT IS PLUS, TMA 61796;01176;72875;23584;8766 1 CPT 07/14/2023 GOALS * None HEALTH CONCERNS * No Health Concerns FUNCTIONAL AND COGNITIVE STATUS * None CONSULTATION NOTES * None DISCHARGE SUMMARY NOTES * None HISTORY AND PHYSICAL NOTES * None IMAGING NOTES * None LABORATORY REPORT NARRATIVE NOTES * None PATHOLOGY REPORT NARRATIVE NOTES * None PROGRESS NOTES * None
--- OUTSIDE RECORDS SUMMARY | 2024-11-11 14:43 | XMS_ITS ---
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 Phone Lynn Prince [facility] [phone] ALLERGIES, ADVERSE REACTIONS, ALERTS None MEDICATIONS Medication Code Code System Start Date Stop Date Route Dosage Directions Fill Instructions metronidazole 702517 RxNorm 3 vaginal 1 PROBLEMS Problem Name Code Code System Start Date End Date Stat Other specified inflammation of vagina and vulva 12154653 Snomed[facility] 07/14/2023 Active Acute vaginitis 771420144 [facility]omed[facility] 07/16/2023 Acti ve ENCOUNTERS Encounter Diagnosis Code Code System Date Stat us Other specified inflammation of vagina and vulva 67618237 Snomed[facility] 07/14/2023 Active IMMUNIZATIONS * None VITAL SIGNS Code Code System Vitals Name Date Value and Un its 8462-4 [facility] Blood Pressure-Diastolic 07/14/2023 86 mmHg 8480-6 [facility] Blood Pressure-Systolic 07/14/2023 1 28 mmHg 8867-4 [facility] Heart Rate 07/14/2023 88 /min 9279-1 [facility] Respiratory Rate 07/14/2023 16 /min 8310-5 Loinc Body Temperature 07/14/2023 98.7 F 10633-8 Loinc Oxygen Saturation 07/14/2023 97 % SOCIAL HISTORY * None PROCEDURES * None RESULTS Test Code Code System Description Result Value Date Ref erence Range Loinc Glucose Negative 07/14/2023 Loinc Bilirubin Negative 07/14/2023 Loinc Ketone Negative 07/14/2023 Loinc Specific [place] >=1.030 07/14/2023 Loinc Blood Negative 07/14/2023 Loinc pH 6.94346 07/14/2023 Loinc Protein Negative 07/14/2023 Loinc Urobilinogen 0.36853 E.U./dL 07/14/2023 Loinc Nitrite Negative 07/14/2023 Loinc Leukocytes Negative 07/14/2023 Loinc Color Dark yellow 07/14/2023 Loinc Clarity Clear 07/14/2023 Loinc hCG Negative 07/14/2023 59587-8 [facility] RPR (DX) W/REFL TITER AND CONFIRMATORY TESTING NON-REACTIVE 07/14/2023 NON-REACTIVE 69395-6 [facility] SURESWAB(R) ADV BACTERIAL VAGINOSIS (BV), TMA POSITIVE 07/14/2023 NEGATIVE 40134-3 [facility] EMILY SPECIES NOT DETECTED 07/14/2023 N OT DETECTED 25980-4 [facility] EMILY GLABRATA NOT DETECTED 07/14/2023 NOT DETECTED 98590-9 [facility] TRICHOMONAS VAGI NALIS (TV), TMA NOT DETECTED 07/14/2023 NOT DETECTED 25488-3 [facility] CHLAMYDIA TRACHO MATIS RNA, TMA, UROGENITAL NOT DETECTED 07/14/2023 NOT DETECTED 53638-0 [facility] NEISSERIA GONORR HOEAE RNA, TMA, UROGENITAL [...] System Date Urinalysis, automated, witho [place] microscopy 25609 CPT 07/14/2023 hCG Chemistry Test , Qualitative 46871 CPT 07/14/2023 RPR (DX) W/REFL TITER AND CONFIRMATORY TESTING 52343 CPT 07/14/2023 SURESWAB(R) ADVANCED VAGINIT IS PLUS, TMA 89200;65551;34861;08429;8766 1 CPT 07/14/2023 GOALS * None HEALTH CONCERNS * No Health Concerns FUNCTIONAL AND COGNITIVE STATUS * None CONSULTATION NOTES * None DISCHARGE SUMMARY NOTES * None HISTORY AND PHYSICAL NOTES * None IMAGING NOTES * None LABORATORY REPORT NARRATIVE NOTES * None PATHOLOGY REPORT NARRATIVE NOTES * None PROGRESS NOTES * None
== END 2024-11-11 13:50 | disposition home or self-care (01) ==
PROVIDERS: PCP Family Medicine; Visit Provider Advanced Practice Midwife
DX: N89.8 Other specified noninflammatory disorders of vagina (principal); Z20.2 Contact with and (suspected) exposure to infections with a predominantly sexual mode of transmission
CPT/HCPCS: 99214

== ENCOUNTER 2024-11-11 13:51 | Outpatient (REF) | payer OTHER, SELFPAY ==
[2024-11-12 07:57] LABS: Syphilis Screen Nonreactive (Nonreactive)
[2024-11-12 09:19] LABS: HBsAGNum1 0.29 S/CO (0.00-0.99); HIV AB/AG Nonreactive (Nonreactive); HIV Num 1 0.04 S/CO (0.00-0.99); Hepatitis B Surface Antigen Negative (Negative)
[2024-11-14 13:18] LABS: HCV Log PCR <1.18 NOT DETECTED Log IU/mL (NOT DETECTED); HepC Viral Load <15 NOT DETECTED IU/mL (NOT DETECTED)
== END 2024-11-11 13:52 | disposition home or self-care (01) ==
LOC: HO.LNP 13:51
PROVIDERS: Visit Provider Advanced Practice Midwife
DX: Z20.2 Contact with and (suspected) exposure to infections with a predominantly sexual mode of transmission (principal)
CPT/HCPCS: 86780; 87340; 87389; 87491; 87522; 87591

== ENCOUNTER 2025-04-07 14:25 | Outpatient (REF) | payer OTHER, SELFPAY ==
[2025-04-07 17:45] LABS: MANUAL DIFF FLAG NO
[2025-04-07 17:46] LABS: Appearance Urine Turbid; Color Urine Yellow; Glucose Urine UA Negative (Negative); Leukocyte Esterase Urine Negative (Negative); Nitrite Urine Negative (Negative); PH 5.5 (5.0-9.0); UMIC TRIGGER UACC YES; Urine Blood Large (3+) (Negative); Urine Ketones Negative (Negative); Urine Protein Negative (Neg-Trace)
[2025-04-07 17:49] LABS: Basophils Percent Auto 0.5 % (0-2); Eosinophils Absolute Auto 0.2 X10*3/uL (0.0-0.4); Eosinophils Percent Auto 3.1 % (0-4); Hematocrit 39.4 % (37.0-47.0); Hemoglobin 13.5 g/dl (12.0-16.0); Imm Gran Abs Auto 0.02 X10*3/uL (0.00-0.03); Imm Gran Pct Auto 0.3 % (0.0-0.4); Lymphocytes Absolute Auto 1.9 X10*3/uL (1.2-4.9); Lymphocytes Percent Auto 29.5 % (20-40); Mean Corpuscular HGB Conc 34.3 g/dl (31.0-35.0); Mean Corpuscular Hemoglobin 34.6 pg (27.0-33.0); Mean Platelet Volume 9.5 fL (9.4-12.3); Monocytes Absolute Auto 0.6 X10*3/uL (0.1-1.2); Monocytes Percent Auto 9.9 % (2-11); Neutrophils Absolute Auto 3.6 x10*3/uL (2.0-8.3); Neutrophils Percent Auto 56.7 % (45-73); Platelet Count 290 X10*3/uL (160-400); Red Cell Distribution Width 13.1 % (11.0-16.0); White Blood Count 6.4 X10*3/uL (4.8-10.8)
[2025-04-07 17:58] LABS: Bacteria Urine None Seen (None Seen); Hyaline Casts Urine 0-2 /LPF (0-2); Squamous Epithelial Cell Urine 0-2 /HPF (0-2); WBC Urine 0-5 /HPF (0-5)
[2025-04-07 18:10] LABS: Alanine Aminotransferase 20 U/L (0-31); Albumin Level 4.1 g/dL (3.5-5.0); Alkaline Phosphatase 58 U/L (39-117); Anion Gap 8 (12-20); Aspartate Amino Transferase 21 U/L (5-31); Bilirubin Total 0.5 mg/dL (0.0-1.0); Blood Urea Nitrogen 9 mg/dL (9-16); Carbon Dioxide 25 mmol/L (22-29); Chloride 109 mmol/L (96-108); Cholesterol 231 mg/dL (<200); Estimated Glomerular Filt Rate > 60; Glucose Fasting 85 mg/dL (60-99); HDL Cholesterol 44 mg/dL (>40); LDL Cholesterol Calculated 147 mg/dL (<100); Potassium 4.3 mmol/L (3.3-5.1); Sodium 138 mmol/L (135-145); Total Protein 6.8 g/dL (6.5-8.0); Triglycerides 202 mg/dL (<150)
[2025-04-07 18:19] LABS: Creatinine Urine 156.96 mg/dL; Microalbumin Urine < 5.0 mg/L
[2025-04-07 18:26] LABS: TSH reflex Free T4 1.96 uIU/mL (0.32-4.0); Vitamin D 25-OH Total 31.9 ng/mL (>30)
== END 2025-04-07 14:26 | disposition home or self-care (01) ==
LOC: HO.WFDLDS 14:25
PROVIDERS: Visit Provider Family Medicine
DX: Z00.00 Encounter for general adult medical examination without abnormal findings (principal); E55.9 Vitamin D deficiency, unspecified; I10 Essential (primary) hypertension
CPT/HCPCS: 36415; 80053; 80061; 81001; 82306; 82570; 84443; 85025

== ENCOUNTER 2025-09-27 15:31 | Outpatient (REF) | payer OTHER, SELFPAY ==
[2025-09-27 22:48] LABS: Bacterial Vaginosis PCR POSITIVE (Negative); Candida Group PCR NOT DETECTED (Not Detect); Candida glab krusei PCR NOT DETECTED (Not Detect); Trichomonas vaginalis PCR NOT DETECTED (Not Detect)
[2025-09-27 23:19] LABS: CT PCR NOT DETECTED (Not Detect.); NG PCR NOT DETECTED (Not Detect.)
[2025-09-28 05:08] LABS: Syphilis Screen Nonreactive (Nonreactive)
[2025-09-28 05:19] LABS: HBc Num1 0.07 S/CO (0.00-0.79); HIV Num 1 0.06 S/CO (0.00-0.99); ~HepC Num1 0.10 S/CO (0.00-0.79); ~Hepatitis C Antibody Nonreactive (Nonreactive)
== END 2025-09-27 15:32 | disposition home or self-care (01) ==
LOC: HO.LAB 15:31
PROVIDERS: PCP Family Medicine; Visit Provider Advanced Practice Midwife
DX: Z01.419 Encounter for gynecological examination (general) (routine) without abnormal findings (principal); Z20.2 Contact with and (suspected) exposure to infections with a predominantly sexual mode of transmission; Z01.84 Encounter for antibody response examination
CPT/HCPCS: 36415; 81515; 86704; 86780; 86803; 87389; 87491; 87591; 99395

== ENCOUNTER 2025-09-27 15:31 | Outpatient (AMB) | payer OTHER, SELFPAY ==
--- NOTE | 2025-09-27 15:33 | MHC.OFFVIS ---
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 Regular monthly menses. Currently is sexually active. She denies vaginal itching or irritation. STI screening offered; she accepts. She tries to eat healthy and stays active with exercise at work. Last pap smear 2022, negative. 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 Current occupational exposures/hazards: No Cognitive needs: No Hearing needs: No Vision needs: No Female Reproductive History Menstrual Age of Menarche: 10 Date of last menstrual period: 09/15/25 control method: none Total pregnancies: 1 Number of Living Children: 0 Ab induced: 1 Date of last pap smear: 01/02/23 (neg) History of STI: Yes (01/23 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) Review of Systems Const All systems reviewed & are unremarkable except as noted in HPI and below Reports as per HPI Eyes Reports no additional complaints ENT Reports no additional complaints Card Reports no additional complaints Resp Reports no additional complaints GI Reports as per HPI and Reports no additional complaints Reports as per HPI Musc Reports no additional complaints Skin/Breast Reports as per HPI Neuro Reports no additional complaints Psych Reports no additional complaints Endo Reports no additional complaints Slava/Lymph Reports no additional complaints Aller/Immun Reports no additional complaints Physical Exam Vital Signs: Last Vital Signs BP 126/84 09/27/25 15:38 BMI result Body Mass Index 30.1 Const General: cooperative, healthy appearing, no acute distress, well developed and alert Orientation/consciousness: patient oriented x3 HEENT Head: Yes normal to inspection Eyes General: appearance normal, both eyes and all related structures Neck Neck: Yes normal visual inspection Thyroid: Thyroid normal Chest Chest palpation & inspection: normal inspection of the chest and other (no puckering, dimpling, peau de orange, retraction, discharge, masses) Breast/axilla inspection: normal inspection of the breasts Breast/axilla palpation: normal palpation of the breasts Resp Effort & Inspection: normal respiratory effort GI Inspection: Yes normal to inspection Palpation (GI): Soft to palpation Rectal Exam - Female: deferred General: Yes bladder normal to palpation External Female Exam: normal external appearance and normal appearance of the urethra Speculum Exam - Vagina: normal appearance of the vagina, normal palpation and normal vaginal discharge Speculum Exam - Cervix: normal appearance of the cervix and normal palpation Bimanual exam- vagina & uterus: normal bimanual exam, normal palpation, uterine size normal, bladder normal to palpation, normal palpation and non-tender Bimanual Exam- Adnexa, other: no masses Skin General skin exam: no rashes or lesions noted Rashes: no rashes Neuro General: patient oriented x3 Cognition (Neuro): normal cognition Extrem General: Yes normal to inspection Psych Attitude: cooperative Thought process: Normal thought process present Assessment & Plan Assessment & Plan (1) Well woman exam with routine gynecological exam: Code(s): Z01.419 - Encounter for gynecological examination (general) (routine) without abnormal findings Category: Medical Plan Discussed: Current recommendations for pap smears per ASCCP guidelines. Breast awareness and periodic breast exams. BV panel and GC chlamydia obtained today. Lab work ordered. Follow up pending results. Maintain a healthy lifestyle including a well balanced diet and routine exercise. Use condoms for STI and prevention. Schedule follow up for control if needed. Patient verbalizes understanding and agrees to the plan of care. She was given opportunity to ask questions and all questions were answered to the best of my ability. 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 This note is constructed using voice recognition software. While every effort has been made to ensure accuracy, house parent errors may have been included. Orders: Orders Bacterial Vaginosis Panel Today Z20.2 - Contact with and (suspected) exposure to infections with a predominantly sexual mode of transmission Hepatitis C Antibody Reflex Today Z20.2 - Contact with and (suspected) exposure to infections with a predominantly sexual mode of transmission Hepatitis B Core Antibody Today Z20.2 - Contact with and (suspected) exposure to infections with a predominantly sexual mode of transmission CT NG by PCR Vag/Cerv Today Z20.2 - Contact with and (suspected) exposure to infections with a predominantly sexual mode of transmission HIV Ab/Ag Today Z20.2 - Contact with and (suspected) exposure to infections with a predominantly sexual mode of transmission Syphilis Screen Today Z20.2 - Contact with and (suspected) exposure to infections with a predominantly sexual mode of transmission Coding Level of Care Code Est Pt Prev Care 18-39y(45110) Diagnoses Well woman exam with routine gynecological exam Z01.419
[2025-09-27 15:38] VITALS: BP 126/84; BMI 30.1
== END 2025-09-27 16:34 | disposition home or self-care (01) ==
LOC: HO.HWS 15:32
PROVIDERS: PCP Family Medicine; Visit Provider Advanced Practice Midwife
DX: Z01.419 Encounter for gynecological examination (general) (routine) without abnormal findings (principal)
CPT/HCPCS: 99395; 99459